=== PATIENT | male | born 1960 | race Caucasian/White ===

== ENCOUNTER 2018-04-25 07:34 | Emergency (ER) | payer SELFPAY ==
[2018-04-25] MEDS ORDERED: MEPERIDINE HCL 25 MG/0.5 ML ONE (08:19)
[2018-04-25] MEDS ORDERED: DEXAMETHASONE 10 MG/ML VIAL ONE (08:19)
[2018-04-25] MEDS ORDERED: KETOROLAC 30 MG/ML INJ ONE (08:19)
--- NOTE | 2018-04-25 09:28 | RAD REPORT ---
EXAM DESCRIPTION: RAD - Lumbar Spine 3 Views - 04/25/2018 9:14 am CLINICAL HISTORY: LOWER BACK PAIN Radiculopathy COMPARISON: No comparisons FINDINGS: Vertebral body heights appear maintained. No compression fracture noted. Minimal disc thin deon is present at at L4-5 and L5-S1. Minimal degenerative anterolisthesis of L4 on 5 is seen. No spo ndylolysis or spondylolisthesis. Heavy aortic atherosclerosis. IMPRESSION: Mild lower lumbar spondylosis.
--- NOTE | 2018-04-25 09:31 | ER ---
Nurse's Notes [facility] Name: Pierre Jade Age: 57 yrs Sex: Male : 1960 Arrival Date: 04/25/2018 Time: 07:37 Bed 19 Private MD: Reuben Tapia E Diagnosis: Strain of muscle, fascia and tendon of lower back Presentation: 04/25 07:46 Presenting complaint: Patient states: i loaded some plastic chairs last weekend on the hj back of my truck, then my whole lower back is hurting and my lower legs gave away; denies tingling numbness on bilateral legs;. Transition of care: patient was not received from another setting of care. Onset of symptoms was April 25, 2018. Risk Assessment: Do you want to hurt yourself or someone else? Patient reports no desire to harm self or others. Initial Sepsis Screen: Does the patient meet any 2 criteria? No. Patient's initial sepsis screen is negative. Does the patient have a suspected source of infection? No. Patient's initial sepsis screen is negative. Care prior to arrival: None. 07:46 Method Of Arrival: Ambulatory 07:46 Acuity: SARWAT 3 hj Triage Assessment: 07:50 General: Appears in no apparent distress. uncomfortable, Behavior is calm, cooperative, hj appropriate for age. Pain: Complains of pain in left low back and right low back. Musculoskeletal: Range of motion: intact in all extremities, Swelling. Historical: - Allergies: 07:49 NKDA; hj - Home Meds: 07:49 None [Active]; hj - PMHx: 07:49 Anxiety; Hypertension; hj - PSHx: 07:49 None; hj - Immunization history:: Adult Immunizations up to date. - Social history:: Smoking status: Patient uses tobacco products, smokes one pack cigarettes per day. Patient uses alcohol. - Ebola Screening: : Patient negative for fever greater than or equal to 101.5 degrees Fahrenheit, and additional compatible Ebola Virus Disease symptoms Patient denies exposure to infectious person Patient denies travel to an Ebola-affected area in the 21 days before illness onset. - Family history:: not pertinent. - Hospitalizations: : No recent hospitalization is reported. The patient was recently seen at [facility]. Screenin:50 Abuse screen: Denies threats or abuse. Denies injuries from another. Nutritional hj screening: No deficits noted. Tuberculosis screening: No symptoms or risk factors identified. Fall Risk None identified. Assessment: 07:55 Reassessment: pt is in the restroom at this time. tw2 08:03 General: Appears in no apparent distress. Behavior is calm, cooperative, appropriate tw2 for age. Pain: Complains of pain in right low back and left low back. Neuro: Level of Consciousness is awake, alert, obeys commands, Oriented to person, place, time, situation. Cardiovascular: Patient's skin is warm and dry. Respiratory: Airway is patent Respiratory effort is even, unlabored, Respiratory pattern is regular, symmetrical. GI: No signs and/or symptoms were reported involving the gastrointestinal system. : No signs and/or symptoms were reported regarding the genitourinary system. EENT: No signs and/or symptoms were reported regarding the EENT system. Derm: No signs and/or symptoms reported regarding the dermatologic system. Musculoskeletal: Circulation, motion, and sensation intact. Range of motion: intact in all extremities. 08:47 Reassessment: Patient appears in no apparent distress at this time. No changes from tw2 previously documented assessment. Patient and/or family updated on plan of care and expected duration. Pain level reassessed. Patient is alert, oriented x 3, equal unlabored respirations, skin warm/dry/pink. 09:45 Reassessment: Patient appears in no apparent distress at this time. Patient and/or tw2 family updated on plan of care and expected duration. Pain level reassessed. Patient is alert, oriented x 3, equal unlabored respirations, skin warm/dry/pink. Patient states feeling better. Patient states symptoms have improved. Vital Signs: 07:51 BP 140 / 85; Pulse 78; Resp 18; Temp 98.1(TE); Pulse Ox 97% on R/A; Weight 99.79 kg; hj Height 5 ft. 9 in. (175.26 cm); Pain 10/10; 08:46 BP 150 / 94; Pulse 79; Resp 17; Pulse Ox 95% on R/A; tw2 07:51 Body Mass Index 32.49 (99.79 kg, 175.26 cm) ED Course: 07:37 Patient arrived in ED. as 07:37 Reuben Tapia MD is Private Physician. as 07:44 Sp Lechuga MD is Attending Physician. rn 07:49 Triage completed. hj 07:50 Arm band placed on left wrist. hj 07:51 Patient has correct armband on for positive identification. Placed in gown. Bed in low hj position. Call light in reach. Side rails up X 1. 07:55 Corin Paredes, OTF is Primary Nurse. tw2 08:18 Inserted saline lock: 22 gauge in right antecubital area, using aseptic technique. tw2 09:13 X-ray completed. Patient tolerated procedure well. Patient moved back from radiology. mh1 09:14 XRAY Lumbar Spine (3 Views) In Process Unspecified. EDMS 09:31 Reuben Tapia MD is Referral Physician. rn 09:45 No provider procedures requiring assistance completed. IV discontinued, intact, tw2 bleeding controlled, No redness/swelling at site. Pressure dressing applied. Administered Medications: 08:19 Drug: Demerol 25 mg Route: IVP; Site: right antecubital; tw2 09:45 Follow up: Response: No adverse reaction tw2 08:22 Drug: TORadol 30 mg Route: IVP; Site: right antecubital; tw2 09:45 Follow up: Response: No adverse reaction tw2 08:24 Drug: Decadron - Dexamethasone 10 mg Route: IVP; Site: right antecubital; tw2 09:45 Follow up: Response: No adverse reaction tw2 Outcome: 09:31 Discharge ordered by . rn 09:45 Discharged to home via wheelchair, with family. tw2 09:45 Condition: stable 09:45 Discharge instructions given to patient, significant other, Instructed on discharge instructions, follow up and referral plans. no drinking with medication, no driving heavy equipment, medication usage, Demonstrated understanding of instructions, follow-up care, medications, Prescriptions given X 3. 09:46 Patient left the ED. tw2 Signatures: Dispatcher [employer] EDMS Mike Narayananha 1 Jeanette Nicole as Sp Lechuga MD MD rn Joaquin, Henry, RN RN hj Wise, Tara, RN RN tw2 Corrections: (The following items were deleted from the chart) 07:53 07:51 Pulse 78bpm; Resp 18bpm; Pulse Ox 97% RA; Temp 98.1F Temporal; 99.79 kg; Height 5 hj ft. 9 in.; BMI: 32.4; Pain 10/10; hj 08:09 07:46 Acuity: SARWAT 4 [facility]
--- NOTE | 2018-04-25 09:31 | EDPHYS ---
Physician Documentation [facility] Name: Pierre Jade Age: 57 yrs Sex: Male : 1960 Arrival Date: 04/25/2018 Time: 07:37 Bed 19 Private MD: Reuben Tapia E ED Physician Sp Lechuga HPI: 04/25 08:10 This 57 yrs old Male presents to ER via Ambulatory with complaints of Back rn Pain. 08:10 The patient presents with pain that is acute. The symptoms are located in the low back. rn Onset: The symptoms/episode began/occurred 2 day(s) ago. The pain does not radiate. Associated signs and symptoms: Pertinent positives: none Pertinent negatives: abdominal pain, dysuria, fever, hematuria, incontinence, nausea, numbness, tingling, urinary retention, weakness. Modifying factors: The patient symptoms are alleviated by nothing, the patient symptoms are aggravated by any movement, bending. Severity of symptoms: At their worst the symptoms were moderate, in the emergency department the symptoms have improved. The patient has not experienced similar symptoms in the past. Reports loading chairs into suv 2 days ago, felt immediate strain/pain of lower back, hurts to move and walk, but no weakness/numbness, no bowel/bladder issues. No previous back injury. . Historical: - Allergies: 07:49 NKDA; hj - Home Meds: 07:49 None [Active]; hj - PMHx: 07:49 Anxiety; Hypertension; hj - PSHx: 07:49 None; hj - Immunization history:: Adult Immunizations up to date. - Social history:: Smoking status: Patient uses tobacco products, smokes one pack cigarettes per day. Patient uses alcohol. - Ebola Screening: : Patient negative for fever greater than or equal to 101.5 degrees Fahrenheit, and additional compatible Ebola Virus Disease symptoms Patient denies exposure to infectious person Patient denies travel to an Ebola-affected area in the 21 days before illness onset. - Family history:: not pertinent. - Hospitalizations: : No recent hospitalization is reported. The patient was recently seen at [facility]. ROS: 08:10 Constitutional: Negative for fever, chills, and weight loss, Eyes: Negative for injury, rn pain, redness, and discharge, Neck: Negative for injury, pain, and swelling, Cardiovascular: Negative for chest pain, palpitations, and edema, Respiratory: Negative for shortness of breath, cough, wheezing, and pleuritic chest pain, Abdomen/GI: Negative for abdominal pain, nausea, vomiting, diarrhea, and constipation, Back: + for injury and pain, MS/Extremity: Negative for injury and deformity, Skin: Negative for injury, rash, and discoloration, Neuro: Negative for headache, weakness, numbness, tingling, and seizure. Exam: 08:10 Constitutional: This is a well developed, well nourished patient who is awake, alert, rn and in no acute distress. Back: No spinal tenderness. + slow to get up and lift legs into stretcher Skin: Warm, dry MS/ Extremity: Pulses equal, no cyanosis. Neurovascular intact. Full, normal range of motion. Equal circumference. Neuro: Awake and alert, GCS 15, oriented to person, place, time, and situation. Cranial nerves II-XII grossly intact. Motor strength 5/5 in all extremities. Sensory grossly intact. Cerebellar exam normal. Normal gait. Vital Signs: 07:51 BP 140 / 85; Pulse 78; Resp 18; Temp 98.1(TE); Pulse Ox 97% on R/A; Weight 99.79 kg; hj Height 5 ft. 9 in. (175.26 cm); Pain 10/10; 08:46 BP 150 / 94; Pulse 79; Resp 17; Pulse Ox 95% on R/A; tw2 07:51 Body Mass Index 32.49 (99.79 kg, 175.26 cm) hj MDM: 07:54 Patient medically screened. rn 09:30 Differential diagnosis: arthritis, Osteoarthritis ruptured disc, sprain, strain. Data rn reviewed: vital signs, nurses notes, radiologic studies, plain films, and as a result, I will discharge patient. Counseling: I had a detailed discussion with the patient and/or guardian regarding: the historical points, exam findings, and any diagnostic results supporting the discharge/admit diagnosis, radiology results, the need for outpatient follow up, to return to the emergency department if symptoms worsen or persist or if there are any questions or concerns that arise at home. Response to treatment: the patient's symptoms have mildly improved after treatment, and as a result, I will discharge patient. Special discussion: I discussed with the patient/guardian in detail that at this point there is no indication for admission to the hospital. It is understood, however, that if the symptoms persist or worsen the patient needs to return immediately for re-evaluation. Further emergent ED testing is not indicated at this point in time. I discussed with the patient/guardian in detail the need to arrange with the PCP or specialist further outpatient testing, MRI, Based on the presenting symptoms and work-up in the emergency department, I discussed in detail the need to arrange with the PCP or specialist an outpatient procedure, Based on the history and exam findings, there is no indication for further emergent testing or inpatient evaluation. I discussed with the patient/guardian the need to see the primary care provider for further evaluation of the symptoms. 04/25 08:08 Order name: XRAY Lumbar Spine (3 Views); Complete Time: :30 rn 04/25 08:08 Order name: IV Start; Complete Time: : rn Administered Medications: 08:19 Drug: Demerol 25 mg Route: IVP; Site: right antecubital; tw2 09:45 Follow up: Response: No adverse reaction tw2 08:22 Drug: TORadol 30 mg Route: IVP; Site: right antecubital; tw2 09:45 Follow up: Response: No adverse reaction tw2 08:24 Drug: Decadron - Dexamethasone 10 mg Route: IVP; Site: right antecubital; tw2 09:45 Follow up: Response: No adverse reaction tw2 Disposition: 04/25/18 09:31 Discharged to Home. Impression: Strain of muscle, fascia and tendon of lower back. - Condition is Stable. - Discharge Instructions: Back Pain, Adult, Back Injury Prevention. - Prescriptions for Tylenol- Codeine #3 300-30 mg Oral Tablet - take 1 tablet by ORAL route every 6 hours As needed; 20 tablet. Cyclobenzaprine 10 mg Oral Tablet - take 1 tablet by ORAL route every 8 hours As needed; 20 tablet. Medrol (Davis) 4 mg Oral Tablets, Dose Pack - take 1 tablet by ORAL route as directed - follow package instructions; 1 packet. - Medication Reconciliation Form, Thank You Letter, Antibiotic Education, Prescription Opioid Use, Work release form form. - Follow up: Reuben Tapia MD; When: As needed; Reason: Recheck today's complaints, Re-evaluation by your physician. - Problem is new. - Symptoms have improved. Signatures: Dispatcher [employer] EDSp Márquez MD MD rn Joaquin, Henry, RN RN hj Wise, Tara, RN RN tw2 Corrections: (The following items were deleted from the chart) 09:46 09:31 04/25/2018 09:31 Discharged to Home. Impression: Strain of muscle, fascia and tw2 tendon of lower back. Condition is Stable. Discharge Instructions: Back Pain, Adult, Back Injury Prevention. Prescriptions for Tylenol-Codeine #3 300-30 mg Oral Tablet - take 1 tablet by ORAL route every 6 hours As needed; 20 tablet, Cyclobenzaprine 10 mg Oral Tablet - take 1 tablet by ORAL route every 8 hours As needed; 20 tablet, Medrol (Davis) 4 mg Oral Tablets, Dose Pack - take 1 tablet by ORAL route as directed - follow package instructions; 1 packet. and Forms are Work release form, Medication Reconciliation Form, Thank You Letter, Antibiotic Education, Prescription Opioid Use. Follow up: Reuben Tapia; When: As needed; Reason: Recheck today's complaints, Re-evaluation by your physician. Problem is new. Symptoms have improved. rn
[2018-04-25 10:04] VITALS: TEMP 98.1
[2018-04-25 10:06] VITALS: BP 150/94; O2SAT 95
== END 2018-04-25 09:46 | disposition home or self-care (01) ==
LOC: ER 07:34
DX: S39.012A Strain of muscle, fascia and tendon of lower back, initial encounter (principal); X50.9XXA Other and unspecified overexertion or strenuous movements or postures, initial encounter; Y93.89 Activity, other specified; Y92.9 Unspecified place or not applicable; I10 Essential (primary) hypertension; F17.210 Nicotine dependence, cigarettes, uncomplicated
CPT/HCPCS: 72100; 96374; 96375; 99284; J1100; J2175

== ENCOUNTER 2018-09-28 17:51 | Emergency (ER) | payer SELFPAY ==
[2018-09-28] MEDS ORDERED: ALBUTEROL 2.5 MG/3 ML NEB SOL ONE (18:15)
[2018-09-28] MEDS ORDERED: LORAZEPAM 1 MG TABLET ONE (18:15)
[2018-09-28] MEDS ORDERED: IPRATROPIUM BROM 0.5MG/2.5ML ONE (18:15)
--- NOTE | 2018-09-28 19:02 | EDPHYS ---
Physician Documentation [facility] Name: Pierre Jade Age: 58 yrs Sex: Male : 1960 Arrival Date: 09/28/2018 Time: 17:55 Bed 6 Private MD: ED Physician Sp Lechuga HPI: 09/28 18:12 This 58 yrs old Male presents to ER via EMS with complaints of Anxiety. kb 18:12 The patient presents to the emergency department with anxiety, over a relationship, has kb had a recent break-up. Onset: The symptoms/episode began/occurred today. Past psychiatric history: Past psychiatric history: Prior diagnosis: anxiety, was on unknown medication for anxiety, but hasn't needed it in a long time. Associated signs and symptoms: Pertinent positives; anxiety. Severity of symptoms: At their worst the symptoms were moderate in the emergency department the symptoms are unchanged. The patient has experienced similar episodes in the past. The patient has not recently seen a physician. Pt reports his went to her daughter's house in [place], then called and said she wasn't coming back and was leaving him. States he has not been able to sit still since then. Long time smoker, no complaints of shortness of breath or chest pain. c/o anxiety only. Historical: - Allergies: 17:59 NKDA; sg - Home Meds: 17:59 lisinopril Oral [Active]; sg - PMHx: 17:59 Anxiety; Hypertension; sg - PSHx: 17:59 None; sg - Immunization history:: Adult Immunizations unknown. - Social history:: Smoking status: Patient/guardian denies using tobacco. - Ebola Screening: : Patient negative for fever greater than or equal to 101.5 degrees Fahrenheit, and additional compatible Ebola Virus Disease symptoms Patient denies exposure to infectious person Patient denies travel to an Ebola-affected area in the 21 days before illness onset No symptoms or risks identified at this time. ROS: 18:04 Constitutional: Negative for fever, chills, and weight loss, Cardiovascular: Negative kb for chest pain, palpitations, and edema, Respiratory: Negative for shortness of breath, cough, wheezing, and pleuritic chest pain, Abdomen/GI: Negative for abdominal pain, nausea, vomiting, diarrhea, and constipation, Back: Negative for injury and pain, MS/Extremity: Negative for injury and deformity, Skin: Negative for injury, rash, and discoloration, Neuro: Negative for headache, weakness, numbness, tingling, and seizure. 18:04 Psych: Positive for anxiety, Negative for depression, drug dependence, alcohol dependence, auditory hallucinations, visual hallucinations, homicidal ideation, insomnia, suicide gesture, suicidal ideation. Exam: 18:04 Constitutional: This is a well developed, well nourished patient who is awake, alert, kb and in no acute distress. Head/Face: Normocephalic, atraumatic. ENT: Nares patent. No nasal discharge, no septal abnormalities noted. Tympanic membranes are normal and external auditory canals are clear. Oropharynx with no redness, swelling, or masses, exudates, or evidence of obstruction, uvula midline. Mucous membranes moist. Neck: Trachea midline, no thyromegaly or masses palpated, and no cervical lymphadenopathy. Supple, full range of motion without nuchal rigidity, or vertebral point tenderness. No Meningismus. Chest/axilla: Normal chest wall appearance and motion. Nontender with no deformity. No lesions are appreciated. Cardiovascular: Regular rate and rhythm with a normal S1 and S2. No gallops, murmurs, or rubs. Normal PMI, no JVD. No pulse deficits. Abdomen/GI: Soft, non-tender, with normal bowel sounds. No distension or tympany. No guarding or rebound. No evidence of tenderness throughout. Skin: Warm, dry with normal turgor. Normal color with no rashes, no lesions, and no evidence of cellulitis. MS/ Extremity: Pulses equal, no cyanosis. Neurovascular intact. Full, normal range of motion. Neuro: Awake and alert, GCS 15, oriented to person, place, time, and situation. Cranial nerves II-XII grossly intact. Motor strength 5/5 in all extremities. Sensory grossly intact. Cerebellar exam normal. Normal gait. 18:04 Respiratory: the patient does not display signs of respiratory distress, Respirations: normal, Breath sounds: wheezing: expiratory that is mild, is heard diffusely. 18:04 Psych: Behavior/mood is cooperative, anxious, Affect is animated, Oriented to person, place, time, Patient has no thoughts/intents to harm self or others. Judgement / Insight is normal. Memory is normal. Delusions/hallucinations are not present. 18:37 ECG was reviewed by the Attending Physician. kb Vital Signs: 17:57 Pulse 89; Resp 19; Temp 97.2; Pulse Ox 99% on R/A; sg 19:06 BP 133 / 92; Pulse 78; Resp 17 S; Temp 98.1; Pulse Ox 98% on R/A; Pain 0/10; sg 19:21 BP 133 / 92; Pulse 100; Resp 20; Pulse Ox 96% on R/A; tl2 17:57 unable to obtain a BP at this time, due to pt anxiety sg MDM: 17:56 Patient medically screened. kb 17:59 Data reviewed: vital signs, nurses notes. Data interpreted: Pulse oximetry: on room air kb is 99 %. Interpretation: normal. 18:55 Counseling: I had a detailed discussion with the patient and/or guardian regarding: the kb historical points, exam findings, and any diagnostic results supporting the discharge/admit diagnosis, the need for outpatient follow up, a family practitioner, to return to the emergency department if symptoms worsen or persist or if there are any questions or concerns that arise at home. 09/28 17:58 Order name: EKG; Complete Time: 17:59 kb 09/28 17:58 Order name: EKG - Nurse/Tech; Complete Time: 18:13 kb EC:37 Rate is 95 beats/min. Rhythm is regular, Normal Sinus Rhythm. QRS Peck is Normal. MA kb interval is normal at 160 msec. QRS interval is normal at 84 msec. QT interval is normal at 378 msec. Clinical impression: Normal ECG. Interpreted by me. Reviewed by me. Administered Medications: 18:10 Drug: DuoNeb (3:1) (2.5 mg - 0.5 mg) 3 ml Route: Nebulizer; sg 19:22 Follow up: Response: Marked relief of symptoms tl2 18:10 Drug: Ativan 1 mg Route: PO; sg 19:22 Follow up: Response: No adverse reaction; Marked relief of symptoms tl2 Disposition: 09/28/18 19:02 Discharged to Home. Impression: Anxiety disorder, unspecified. - Condition is Stable. - Discharge Instructions: Panic Attacks, [id number]. - Medication Reconciliation Form, Thank You Letter, Antibiotic Education, Prescription Opioid Use form. - Follow up: Emergency Department; When: As needed; Reason: Worsening of condition. Follow up: Private Physician; When: 2 - 3 days; Reason: Recheck today's complaints, Continuance of care, Re-evaluation by your physician. Addendum: 10/03/2018 07:56 Co-signature as Attending Physician, Sp Lechuga MD. r n Signatures: Paty Christopher, ZACHARY-C [employer] P[employer]ER-CkJaun Sabillon RN OTF sg Sp Lechuga MD MD rn Knox, Tala RN RN tl2 Corrections: (The following items were deleted from the chart) 09/28 19:23 19:02 09/28/2018 19:02 Discharged to Home. Impression: Anxiety disorder, unspecified. tl2 Condition is Stable. Discharge Instructions: Panic Attacks, [id number]. Forms are Medication Reconciliation Form, Thank You Letter, Antibiotic Education, Prescription Opioid Use. Follow up: Emergency Department; When: As needed; Reason: Worsening of condition. Follow up: Private Physician; When: 2 - 3 days; Reason: Recheck today's complaints, Continuance of care, Re-evaluation by your physician. kb
--- NOTE | 2018-09-28 19:02 | ER ---
Nurse's Notes [facility] Name: Pierre Jade Age: 58 yrs Sex: Male : 1960 Arrival Date: 09/28/2018 Time: 17:55 Bed 6 Private MD: Diagnosis: Anxiety disorder, unspecified Presentation: 09/28 17:55 Presenting complaint: EMS states: pt reports that his left to go see their sg daughter, then told him that she was not coming back home to him. shortly after hearing that he began feeling anxious. reports history of anxiety and having hypertension. Transition of care: patient was not received from another setting of care. Onset of symptoms was September 28, 2018. Risk Assessment: Do you want to hurt yourself or someone else? Patient reports no desire to harm self or others. Initial Sepsis Screen: Does the patient meet any 2 criteria? No. Patient's initial sepsis screen is negative. Does the patient have a suspected source of infection? No. Patient's initial sepsis screen is negative. Care prior to arrival: None. 17:55 Method Of Arrival: EMS: [facility] 17:55 Acuity: SARWAT 4 sg Historical: - Allergies: 17:59 NKDA; sg - Home Meds: 17:59 lisinopril Oral [Active]; sg - PMHx: 17:59 Anxiety; Hypertension; sg - PSHx: 17:59 None; sg - Immunization history:: Adult Immunizations unknown. - Social history:: Smoking status: Patient/guardian denies using tobacco. - Ebola Screening: : Patient negative for fever greater than or equal to 101.5 degrees Fahrenheit, and additional compatible Ebola Virus Disease symptoms Patient denies exposure to infectious person Patient denies travel to an Ebola-affected area in the 21 days before illness onset No symptoms or risks identified at this time. Screenin:12 Abuse screen: Denies threats or abuse. Nutritional screening: No deficits noted. tw2 Tuberculosis screening: No symptoms or risk factors identified. Fall Risk None identified. Assessment: 18:14 General: Appears in no apparent distress. comfortable, well developed, well nourished, sg Behavior is agitated, anxious, Smells of alcohol. Neuro: Level of Consciousness is awake, alert, obeys commands, Oriented to person, place, time, situation, It Sales Executive are equal bilaterally Moves all extremities. Full function Speech is normal, Facial symmetry appears normal. Cardiovascular: Patient's skin is warm and dry. Chest pain is denied. Respiratory: Airway is patent Respiratory effort is even, unlabored, Respiratory pattern is regular, symmetrical. GI: Abdomen is round obese, Reports tolerance of fluids, tolerance of food. : No signs and/or symptoms were reported regarding the genitourinary system. EENT: No signs and/or symptoms were reported regarding the EENT system. Derm: Skin is normal. Musculoskeletal: No signs and/or symptoms reported regarding the musculoskeletal system. 19:05 Reassessment: Patient appears in no apparent distress at this time. Patient and/or sg family updated on plan of care and expected duration. Pain level reassessed. Patient is alert, oriented x 3, equal unlabored respirations, skin warm/dry/pink. Patient states feeling better. Patient states symptoms have improved. General: Behavior is calm, cooperative, appropriate for age, quiet. Respiratory: Airway is patent Respiratory effort is even, unlabored, Respiratory pattern is regular, symmetrical. 19:21 Reassessment: Patient appears in no apparent distress at this time. Patient and/or tl2 family updated on plan of care and expected duration. Pain level reassessed. Patient is alert, oriented x 3, equal unlabored respirations, skin warm/dry/pink. pt verbalized understanding of discharge instructions, need for follow up Patient states feeling better. Vital Signs: 17:57 Pulse 89; Resp 19; Temp 97.2; Pulse Ox 99% on R/A; sg 19:06 BP 133 / 92; Pulse 78; Resp 17 S; Temp 98.1; Pulse Ox 98% on R/A; Pain 0/10; sg 19:21 BP 133 / 92; Pulse 100; Resp 20; Pulse Ox 96% on R/A; tl2 17:57 unable to obtain a BP at this time, due to pt anxiety sg ED Course: 17:55 Patient arrived in ED. sg 17:55 [facility] kb 17:55 Sp Lechuga MD is Attending Physician. kb 17:55 Bed in low position. Call light in reach. Pulse ox on. tw2 17:57 Triage completed. sg 17:59 Arm band placed on. sg 18:13 Jaun Wisdom, OTF is Primary Nurse. sg 18:14 EKG done, by ED staff, reviewed by Paty MONTANO. sg 19:21 No provider procedures requiring assistance completed. Patient did not have IV access tl2 during this emergency room visit. Administered Medications: 18:10 Drug: DuoNeb (3:1) (2.5 mg - 0.5 mg) 3 ml Route: Nebulizer; sg 19:22 Follow up: Response: Marked relief of symptoms tl2 18:10 Drug: Ativan 1 mg Route: PO; sg 19:22 Follow up: Response: No adverse reaction; Marked relief of symptoms tl2 Outcome: 19:02 Discharge ordered by . yash 19:21 Discharged to home ambulatory. tl2 19:21 Condition: stable 19:21 Discharge instructions given to patient, Instructed on discharge instructions, follow up and referral plans. Demonstrated understanding of instructions, follow-up care. 19:23 Patient left the ED. tl2 Signatures: Paty Christopher, CHARMAINE SHARMA-Jaun Cunningham RN RN Corin Paredes RN RN [facility] Tala Ramírez RN RN tl2
[2018-09-29 02:52] VITALS: BP 133/92; TEMP 98.1
[2018-09-29 02:54] VITALS: O2SAT 96
--- NOTE | 2018-09-29 12:47 | EKG ---
Test Date: 2018-09-28 Test Time: 18:08:38 Paddle Dyeing Machine Operator: SWG MEASUREMENT RESULTS: Intervals: Rate: 95 ID: [id number] QRSD: 84 QT: 378 QTc: 475 [place]: P: 57 ID: [id number] QRS: 48 T: -8 INTERPRETIVE STATEMENTS: Normal sinus rhythm Normal ECG Compared to ECG 12/16/2016 07:54:20 Ventricular premature complex(es) no longer present Prolonged QT interval no longer present Electronically Signed On 09-29-18 12:44:28 CDT by Valentino Yip
== END 2018-09-28 19:23 | disposition home or self-care (01) ==
LOC: ER 17:51
DX: F41.9 Anxiety disorder, unspecified (principal); I10 Essential (primary) hypertension
CPT/HCPCS: 93005; 94640; 99284

== ENCOUNTER 2020-09-20 01:47 | Emergency (ER) | payer SELFPAY ==
[2020-09-20] MEDS ORDERED: SUCCINYLCHOLINE 20 MG/ML (10 ML) IV ONE (01:48)
[2020-09-20] MEDS ORDERED: EPINEPHrine 1 MG/10 ML SYR IV ONE (01:48)
[2020-09-20] MEDS ORDERED: Caclcium Chloride 10% INJ SYR IV ONE (01:48)
[2020-09-20] MEDS ORDERED: NA CHLORIDE 0.9% 1,000 ML IV ONE ×2 (01:48)
[2020-09-20] MEDS ORDERED: ETOMIDATE 20 MG/10 ML VIAL IV ONE (01:48)
[2020-09-20] MEDS ORDERED: LIDOCAINE 100 MG/5 ML SYRINGE IV ONE (01:48)
--- OUTSIDE RECORDS SUMMARY | 2020-09-20 01:50 | XMS REPORT | Continuity of Care Document ---
:1960 Author Organization [facility] t Address [address] [place] [address] Care Team Providers Name Role Phone Marleen Amaya DO Attending Clinician Problems This patient has no known problems. Allergies, Adverse Reactions, Alerts This patient has no known allergies or adverse reactions. Medications This patient has no known medications. Procedures This patient has no known procedures. Encounters Start End Encounter Admission Attending Care Care Encounter Source Date/Time Date/Time Type Type Clinicians Facility Department ID 2020-08-07 2020-08-07 Emergency ILIANA Amaya [id number] 08:17:00 09:23:00 Scarlet Cardoso [id number] [place] [id number] [place] [id number] Results This patient has no known results.
[2020-09-20] MEDS ORDERED: ONDANSETRON 4 MG/2 ML VIAL ONE ×2 (02:12→06:53)
[2020-09-20] MEDS ORDERED: PANTOPRAZOLE 40 MG INJ ONE ×2 (02:15→02:24)
[2020-09-20] MEDS ORDERED: OCTREOTIDE ACETATE 100 MCG/ML ONE (02:16)
[2020-09-20 02:20] LABS: Urine Blood Trace-intact (Negative); Urine Glucose Negative (Negative); Urine Protein 2+ (Negative); Urine Specific Gravity >=1.030 (1.005-1.030); Urine pH 5.5 (5.0-7.0)
[2020-09-20] MEDS ORDERED: NA CHLORIDE 0.9% 1,000 ML ONE ×2 (02:25→07:41)
[2020-09-20] MEDS ORDERED: NA CHLORIDE 0.9% 250 ML ONE (02:25)
[2020-09-20] MEDS ORDERED: NA CHLORIDE 0.9% 500 ML ONE (02:27)
[2020-09-20 02:29] LABS: Protime INR 1.65
[2020-09-20 02:30] LABS: Absolute Lymphocytes (CBC) 2.8 K/uL (0.7-4.9); Basophils % 0.8 % (0-1.3); Hematocrit 29.2 % (39.6-49.0); Lymphocytes % 19.4 % (15.3-44.8); MPV 9.7 fL (7.6-11.3)
[2020-09-20] MEDS ORDERED: OCTREOTIDE ACETATE 500 MCG/ML ONE (02:35)
[2020-09-20 02:49] LABS: Albumin 2.6 g/dL (3.4-5.0); Bilirubin Direct 1.3 mg/dL (0-0.2); Bilirubin Total 2.9 mg/dL (0.2-1.0); Magnesium 1.5 mg/dL (1.8-2.4); Potassium 4.1 mmol/L (3.5-5.1); Protein, Total 7.3 g/dL (6.4-8.2); Troponin (Emerg Dept Use Only) 0.16 ng/mL (0.0-0.045)
[2020-09-20] MEDS ORDERED: NOREPINEPHRINE 4mg/D5W 250mL 4 MG/250 ML BAG IV ONE (02:53)
[2020-09-20 03:17] LABS: Blood Morphology Comment NOTED (NOT SEEN); Macrocytosis 1+; Platelet Estimate ADEQ; White Blood Cell Scan OK (OK)
[2020-09-20] MEDS ORDERED: NOREPINEPHRINE 4 MG/4 ML VIAL ONE (06:28)
[2020-09-20] MEDS ORDERED: D5W 250 ML IV ONE (06:28)
[2020-09-20 06:51] LABS: Hematocrit 28.8 % (39.6-49.0)
[2020-09-20] MEDS ORDERED: RSI MEDICATION KIT IV ONE (06:58)
[2020-09-20] MEDS ORDERED: LORazepam 2 MG/ML VIAL ONE (06:58)
[2020-09-20] MEDS ORDERED: propofoL 1,000 MG/100 ML VIAL IV ONE (07:07)
--- NOTE | 2020-09-20 07:48 | EKG ---
Test Date: 2020-09-20 Test Time: 02:39:17 Machine Stitcher: MEASUREMENT RESULTS: Intervals: Rate: 132 KS: 140 QRSD: 82 QT: 298 QTc: 441 [place]: P: 70 KS: 140 QRS: 56 T: 57 INTERPRETIVE STATEMENTS: Sinus tachycardia Otherwise normal ECG Compared to ECG 09/28/2018 18:08:38 Sinus rhythm no longer present Electronically Signed On 09-20-20 07:48:11 CDT by Valentino Yip
--- NOTE | 2020-09-20 07:51 | EDPHYS ---
Physician Documentation [facility] Name: Pierre Jade Age: 60 yrs Sex: Male : 1960 Arrival Date: 09/20/2020 Time: 01:49 Bed 2 Private MD: SARAH Physician Win Garcia HPI: 09/20 02:27 This 60 yrs old Male presents to ER via EMS with complaints of GI Bleeding. mh7 02:27 The patient presents to the emergency department vomiting blood, a moderate amount, mh7 bright red, with multiple such episodes, with rectal bleeding, a moderate amount, bright red blood with bowel movement, with multiple such episodes. Onset: The symptoms/episode began/occurred today. Abdominal pain: none is appreciated. Modifying factors: The symptoms are alleviated by nothing, the symptoms are aggravated by nothing. Associated signs and symptoms: Pertinent positives: vomiting, Upper back pain, Pertinent negatives: anorexia, chest pain, constipation, diarrhea, dizziness at rest, dizziness when standing, fever, shortness of breath, syncope, near-syncope. Severity of symptoms: At their worst the symptoms were severe today, in the emergency department the symptoms have improved moderately. Historical: - Allergies: 01:52 NKDA; jb4 - Home Meds: 01:52 Hydroxyzine Oral [Active]; jb4 - PMHx: 01:52 Anxiety; Hypertension; jb4 - PSHx: 01:52 None; jb4 - Immunization history:: Adult Immunizations up to date. - Social history:: Smoking status: Patient reports the use of cigarette tobacco products, smokes one pack cigarettes per day. Patient uses alcohol, on a daily basis. Patient/guardian denies using street drugs. ROS: 02:27 Constitutional: Negative for fever, chills, and weight loss, Eyes: Negative for injury, mh7 pain, redness, and discharge, ENT: Negative for injury, pain, and discharge, Neck: Negative for injury, pain, and swelling, Cardiovascular: Negative for chest pain, palpitations, and edema, Respiratory: Negative for shortness of breath, cough, wheezing, and pleuritic chest pain, : Negative for injury, bleeding, discharge, and swelling, MS/Extremity: Negative for injury and deformity, Skin: Negative for injury, rash, and discoloration, Neuro: Negative for headache, weakness, numbness, tingling, and seizure, Psych: Negative for depression, anxiety, suicide ideation, homicidal ideation, and hallucinations, Allergy/Immunology: Negative for hives, rash, and allergies, Endocrine: Negative for neck swelling, polydipsia, polyuria, polyphagia, and marked weight changes, Hematologic/Lymphatic: Negative for swollen nodes, abnormal bleeding, and unusual bruising. Exam: 02:27 Head/Face: Normocephalic, atraumatic. mh7 02:27 ENT: Nares patent. No nasal discharge, no septal abnormalities noted. Tympanic membranes are normal and external auditory canals are clear. Oropharynx with no redness, swelling, or masses, exudates, or evidence of obstruction, uvula midline. Mucous membranes moist. Neck: Trachea midline, no thyromegaly or masses palpated, and no cervical lymphadenopathy. Supple, full range of motion without nuchal rigidity, or vertebral point tenderness. No Meningismus. Chest/axilla: Normal chest wall appearance and motion. Nontender with no deformity. No lesions are appreciated. 02:27 Respiratory: Lungs have equal breath sounds bilaterally, clear to auscultation and percussion. No rales, rhonchi or wheezes noted. No increased work of breathing, no retractions or nasal flaring. Abdomen/GI: Soft, non-tender, with normal bowel sounds. No distension or tympany. No guarding or rebound. No evidence of tenderness throughout. Back: No spinal tenderness. No costovertebral tenderness. Full range of motion. 02:27 MS/ Extremity: Pulses equal, no cyanosis. Neurovascular intact. Full, normal range of motion. Neuro: Awake and alert, GCS 15, oriented to person, place, time, and situation. Cranial nerves II-XII grossly intact. Motor strength 5/5 in all extremities. Sensory grossly intact. Cerebellar exam normal. Normal gait. Psych: Awake, alert, with orientation to person, place and time. Behavior, mood, and affect are within normal limits. 02:27 Constitutional: The patient appears alert, awake, obviously ill. 02:27 Eyes: Periorbital structures: appear normal, Pupils: equal, round, and reactive to light and accomodation, Extraocular movements: intact throughout, Conjunctiva: pale, bilaterally, Sclera: no appreciated abnormality. 02:27 Cardiovascular: Rate: tachycardic, Rhythm: regular, Pulses: no pulse deficits are appreciated, Heart sounds: normal, normal S1and S2, Edema: is not appreciated, JVD: is not appreciated. 02:27 Skin: pale. Vital Signs: 01:49 BP 59 / 44; Pulse 129; Resp 26; Temp 98.2; Pulse Ox 100% on R/A; jb4 02:00 BP 63 / 46; Pulse 123; Resp 16; Pulse Ox 98% on R/A; jm8 02:30 BP 78 / 42; Pulse 133; Resp 24; Pulse Ox 100% on R/A; jm8 03:00 BP 78 / 38; Pulse 122; Resp 25; Pulse Ox 100% on R/A; jm8 03:10 BP 44 / 34; Pulse 125; Resp 24; Pulse Ox 100% ; jm8 03:20 BP 88 / 57; Pulse 127; Resp 16; Pulse Ox 97% on R/A; jm8 03:35 BP 102 / 57; Pulse 122; Resp 24; Pulse Ox 99% ; jm8 04:06 BP 101 / 58; Pulse 125; Resp 24; Pulse Ox 100% on R/A; jm8 04:30 BP 75 / 66; Pulse 120; Resp 16; Pulse Ox 100% on R/A; jm8 05:00 BP 94 / 59; Pulse 131; Resp 20; Pulse Ox 98% on R/A; jm8 05:30 BP 97 / 46; Pulse 125; Resp 24; Pulse Ox 97% on R/A; jm8 06:00 BP 106 / 59; Pulse 132; Resp 20; Pulse Ox 96% on R/A; jm8 Procedures: 02:34 Central Line: the site was prepped with Betadine, in sterile fashion, a triple lumen mh7 catheter was inserted, in the right femoral vein, in 1 attempts. placement was verified, by blood return, the site was dressed with using sterile technique, the patient tolerated the procedure, well. 06:52 Intubation: Ventilated with 100% NRB prior to procedure. O2 saturation prior to mh7 procedure was 95 %. Intubated orally using # 3 Mark blade with 7.5 mm ETT. was successful on first attempt. Ventilated with Ambu bag. ventilator. Cricoid pressure applied during procedure. Tube secured with ETT brambila at right side of mouth measured 22 cm at lip. Placement verified by CO2 detector with (+) color change, auscultating bilateral breath sounds, O2 saturation after procedure was 100 %. Patient tolerated well. MDM: 07:02 Differential diagnosis: gastritis, hemorrhagic shock, varices. Data reviewed: vital [facility] signs, nurses notes, EMS record, old medical records, lab test result(s), cardiac enzymes, CBC, electrolytes, EKG, radiologic studies, plain films. Data interpreted: Pulse oximetry: on ventilator is 100 %. Interpretation: acceptable. Transition of care: After a detail discussion of the patient's case, care is transferred to Win Garcia MD. ED course: Attempts to transfer unsuccessful as no hospital system in [facility] has ICU beds available. Also called hospitals in [facility].. 07:25 Patient medically screened. [facility] 09/20 01:55 Order name: Basic Metabolic Panel [facility] 09/20 01:55 Order name: CBC with Diff [facility] 09/20 01:55 Order name: LFT's; Complete Time: 02:54 [facility] 09/20 01:55 Order name: Magnesium; Complete Time: 02:54 [facility] 09/20 01:55 Order name: NT PRO-BNP; Complete Time: 02:54 [facility] 09/20 01:55 Order name: PT-INR; Complete Time: 02:54 [facility] 09/20 01:55 Order name: Troponin (emerg Dept Use Only); Complete Time: 02:54 [facility] 09/20 01:55 Order name: Type And Screen [facility] 09/20 01:55 Order name: Basic Metabolic Panel; Complete Time: 02:54 [facility] 09/20 01:55 Order name: CBC with Automated Diff; Complete Time: 03:57 [facility] 09/20 01:57 Order name: ETOH Level; Complete Time: 03:57 [facility] 09/20 02:20 Order name: Urine Dipstick-Ancillary; Complete Time: 02:23 [facility] 09/20 02:53 Order name: Packed RBC Leukored [facility] 09/20 01:55 Order name: XRAY Chest (1 view) [facility] 09/20 02:55 Order name: Blood Culture Adult (2) [facility] 09/20 03:17 Order name: CBC Smear Scan; Complete Time: 03:57 [facility] 09/20 03:30 Order name: COVID-19 : Document "Date of Symptom Onset" if Symptomatic. tt3 09/20 03:58 Order name: Lipase [facility] 09/20 03:58 Order name: Lipase; Complete Time: 06:49 EDMS 09/20 05:39 Order name: SARS-COV-2 RT PCR; Complete Time: 06:49 EDNJ 09/20 06:11 Order name: Hemoglobin; Complete Time: 06:57 iw 09/20 06:11 Order name: Hematocrit; Complete Time: 06:57 iw 09/20 06:49 Order name: Chest Single View XRAY [facility] 09/20 07:02 Order name: Bb Add On eb 09/20 07:03 Order name: Packed RBCs (Additional Unit) [facility] 09/20 01:55 Order name: EKG; Complete Time: 01:56 [facility] 09/20 01:55 Order name: Cardiac monitoring; Complete Time: 03:46 [facility] 09/20 01:55 Order name: EKG - Nurse/Tech; Complete Time: 04:28 [facility] 09/20 01:55 Order name: IV Saline Lock; Complete Time: 04:28 [facility] 09/20 01:55 Order name: Labs collected and sent; Complete Time: 04:28 [facility] 09/20 01:55 Order name: O2 Per Protocol; Complete Time: 04:28 [facility] 09/20 01:55 Order name: O2 Sat Monitoring; Complete Time: 04:28 [facility] 09/20 01:57 Order name: Urine Dipstick-Ancillary (obtain specimen) [facility] Administered Medications: 01:58 Drug: ProTONIX (pantoprazole) 80 mg Route: IVP; Site: right antecubital; jm8 02:49 Follow up: Response: No adverse reaction 8 01:58 Drug: Octreotide 50 mcg Route: IV; Rate: bolus; Site: right antecubital; jm8 02:03 Drug: Zofran (Ondansetron) 4 mg Route: IVP; Site: right antecubital; jm8 02:49 Follow up: Response: No adverse reaction; Nausea is decreased jm8 02:08 Drug: NS 0.9% 1000 ml Route: IV; Rate: 1000 ml; Site: right antecubital; 4 02:24 Drug: Octreotide Infusion (50 mcg/hr) - (Octreotide 500 mcg, NS 0.9% 500 ml) Route: IV; 8 Rate: 50 ml/hr; Site: right femoral; 02:25 Drug: ProTONIX (pantoprazole) 8 mg/hr Route: IV; Rate: 25 ml/hr; Site: right femoral; jm8 02:47 Drug: Levophed (norepinephrine) (4 mg/250 mL D5W 4 mcg/min Route: IV; Rate: calculated jm8 rate; Site: right femoral; 02:48 Follow up: Rate change 5 mcg/min jm8 02:53 Follow up: Rate change 15 mcg/min jm8 03:00 Follow up: Rate change 25 mcg/min jm8 03:10 Follow up: Rate change 30 mcg/min jm8 03:51 Follow up: Rate change 10 mcg/min jm8 04:29 Follow up: Rate change 20 mcg/min jm8 06:40 Drug: Zofran (Ondansetron) 4 mg Route: IVP; Site: right antecubital; jm8 06:45 Drug: Etomidate 20 mg Route: IVP; Site: right femoral; iw 06:45 Drug: Succinylcholine 100 mg Route: IVP; Site: right femoral; iw 06:45 Drug: Ativan (LORazepam) 1 mg Route: IVP; Site: right antecubital; jm8 07:07 Drug: EPINEPHrine 0.1mg/mL 1:10,000 1 mg Route: IVP; Site: right femoral; ss 08:07 Follow up: Response: No change in condition ss 07:25 Drug: EPINEPHrine 0.1mg/mL 1:10,000 1 mg Route: IVP; Site: right femoral; ss 08:06 Follow up: Response: No change in condition ss 07:26 Drug: Sodium Bicarbonate 1 amp Route: IVP; Site: right femoral; ss 08:15 Follow up: Response: No change in condition ss 07:27 Drug: Calcium Chloride 1 grams Route: IVP; Site: right femoral; ss 08:15 Follow up: Response: No change in condition ss 07:29 Drug: EPINEPHrine 0.1mg/mL 1:10,000 1 mg Route: IVP; Site: right femoral; ss 08:15 Follow up: Response: No change in condition ss 07:31 Drug: EPINEPHrine 0.1mg/mL 1:10,000 1 mg Route: IVP; Site: right femoral; ss 08:14 Follow up: Response: No change in condition ss 07:33 Drug: EPINEPHrine 0.1mg/mL 1:10,000 1 mg Route: IVP; Site: right femoral; ss 08:14 Follow up: Response: No change in condition ss 07:34 Drug: Sodium Bicarbonate 1 amp Route: IVP; Site: right femoral; ss 08:06 Follow up: Response: No change in condition ss 07:34 Drug: Lidocaine 100 mg Route: IVP; Site: left antecubital; ss 08:06 Follow up: Response: No change in condition ss 07:36 Drug: Lidocaine 100 mg Route: IVP; Site: left antecubital; ss 08:07 Follow up: Response: No change in condition ss 07:38 Drug: Lidocaine 100 mg Route: IVP; Site: left antecubital; ss 08:13 Follow up: Response: No change in condition ss 08:27 Not Given (Hemodynamic Parameters): Propofol 5 mcg/kg/min IV at calculated rate ss continuous; titrate per protocol (titrate by 5-10mcg/kg/min every 10 min to max rate of 50 mcg/kg/min) Disposition: Patient pronounced on 09/20/20 07:40 by Win Garcia. Impression: Gastrointestinal hemorrhage, unspecified - massive/ exsanguination/ upper, Acute kidney failure, Alcohol abuse, Cardiac arrest, Respiratory arrest, Respiratory failure, unspecified. - Released to Home. Signatures: Dispatcher [employer] EDMS Win Garcia MD MD cha Munoz, Edgar RN RN em Malathi Amaya RN RN iw Smirch, Shelby, RN RN ss Bryson, James, RN RN jb4 Misha Carr MD MD mh7 David Umana RN RN jm8 Corrections: (The following items were deleted from the chart) 04:59 03:31 CORONAVIRUS ordered. EDMS EDMS 07:06 06:59 PACKED RBC LEUKORED -1+BB.LAB.BRZ ordered. EDMS EDMS 07:06 06:59 ABO/RH typing ordered. EDMS EDMS 07:06 06:59 Antibody Screen ordered. EDMS EDMS 10:53 07:50 09/20/2020 07:50 Patient pronounced on 09/20/2020 at 07:40 by Win Garcia. em Impression: Gastrointestinal hemorrhage, unspecified - massive/ exsanguination/ upper; Acute kidney failure; Alcohol abuse; Cardiac arrest; Respiratory arrest; Respiratory failure, unspecified. Released to Home. varsha
--- NOTE | 2020-09-20 07:51 | ER ---
Nurse's Notes [facility] Name: Pierre Jade Age: 60 yrs Sex: Male : 1960 Arrival Date: 09/20/2020 Time: 01:49 Bed 2 Private MD: Diagnosis: Gastrointestinal hemorrhage, unspecified-massive/ exsanguination/ upper;Acute kidney failure;Alcohol abuse;Cardiac arrest;Respiratory arrest;Respiratory failure, unspecified Presentation: 09/20 01:49 Chief complaint: EMS states: Pt reports having two bloody bowel movements that were jb4 just blood. He vomited blood as well. There was approximately 500ml of blood on the floor. His last blood pressure for us was 74/44, HR 140, BGL 130, he has a 20g in the left AC. He has received 300ml of ns so far. Coronavirus screen: Client denies travel out of the [place] in the last 14 days. Client presents with at least one sign or symptom that may indicate coronavirus-19. Ebola Screen: No symptoms or risks identified at this time. Initial Sepsis Screen: Does the patient meet any 2 criteria? RR > 20 per min. HR > 90 bpm. Does the patient have a suspected source of infection? Yes:. Risk Assessment: Do you want to hurt yourself or someone else? Patient reports no desire to harm self or others. Onset of symptoms was September 20, 2020. Transition of care: patient was not received from another setting of care. 01:49 Method Of Arrival: EMS: [facility] 4 01:49 Acuity: SARWAT 1 jb4 Historical: - Allergies: 01:52 NKDA; jb4 - Home Meds: 01:52 Hydroxyzine Oral [Active]; jb4 - PMHx: 01:52 Anxiety; Hypertension; jb4 - PSHx: 01:52 None; jb4 - Immunization history:: Adult Immunizations up to date. - Social history:: Smoking status: Patient reports the use of cigarette tobacco products, smokes one pack cigarettes per day. Patient uses alcohol, on a daily basis. Patient/guardian denies using street drugs. Screenin:32 Abuse screen: Denies threats or abuse. Denies injuries from another. Nutritional jm8 screening: No deficits noted. Tuberculosis screening: No symptoms or risk factors identified. Fall Risk None identified. Assessment: 02:28 General: Appears distressed, uncomfortable, Behavior is calm, cooperative, appropriate jm8 for age, Smells of alcohol. General:. Pain: Complains of pain in upper back Pain currently is 10 out of 10 on a pain scale. Pain began today. Neuro: No deficits noted. Level of Consciousness is awake, alert, obeys commands, Oriented to person, place, time. Cardiovascular: No deficits noted. Cardiovascular: Cardiovascular: Patient hypotensive upon arrival. Rhythm is regular. Respiratory: No deficits noted. Respiratory: Reports shortness of breath Airway is patent Trachea midline Respiratory effort is labored, Respiratory pattern is regular. GI: Abdomen is round distended, Pt is actively vomiting black coffee grounds Reports lower abdominal pain, upper abdominal pain, nausea, vomiting blood. : No deficits noted. EENT: No deficits noted. Derm: No deficits noted. Skin is intact, Skin is diaphoretic, Skin is pink, warm \\T\\ dry. Skin temperature is warm. Musculoskeletal: No deficits noted. 03:00 Reassessment: No changes from previously documented assessment. Patient and/or family jm8 updated on plan of care and expected duration. Pain level reassessed. Blood pressure continues to be persistently low.. 03:56 Reassessment: [facility] denies transfer due to capacity. iw 04:00 Reassessment: Patient and/or family updated on plan of care and expected duration. Pain jm8 level reassessed. Patient is alert, oriented x 3, equal unlabored respirations, skin warm/dry/pink. Patient states feeling better. Patient states symptoms have improved. 05:00 Reassessment: No changes from previously documented assessment. Patient and/or family jm8 updated on plan of care and expected duration. Pain level reassessed. Patient is alert, oriented x 3, equal unlabored respirations, skin warm/dry/pink. Patient states symptoms have improved. 06:00 Reassessment: No changes from previously documented assessment. Patient and/or family jm8 updated on plan of care and expected duration. Pain level reassessed. Patient is alert, oriented x 3, equal unlabored respirations, skin warm/dry/pink. 06:32 Reassessment: No changes from previously documented assessment. Patient vomits blood on jm8 the ground at this time. Patient is agitated and non redirectable. Preparing to intubate at this time. 07:25 Reassessment: Pt still remains hypotensive despite blood products and pressers. Change ss in Cardiac rhythm noted at this time, Vfib noted on monitor, No pulse. Manual CPR began. Pt defibrillated, CPR resumed. 07:27 Reassessment: Pulse check, PEA. " No Pulse, CPR resumed. ss 07:28 Reassessment: 3rd Unit PRBCs administered now. Unit # [id number]. ss 07:29 Reassessment: Pulse check: PEA, no pulse. CPR resumed. ss 07:31 Reassessment: Pulse check: No pulse. PEA. CPR resumed. ss 07:33 Reassessment: Pulse check. No pulse. VFIB. DEFIBRILLATED. CPR resumed. ss 07:35 Reassessment: Pulse check: VIB. No pulse. DEFIBRILLATED. CPR resumed. ss 07:37 Reassessment: Pulse check: Fine Vfib. No pulse, CPR resumed. ss 07:40 Reassessment: Pulse check. No pulse. Time of . ss 07:43 Reassessment: Dr. Garcia spoke with Mayra (step daughter) advised to come to ER. iw 10:45 Reassessment: [facility] staff at bedside. em Vital Signs: 01:49 BP 59 / 44; Pulse 129; Resp 26; Temp 98.2; Pulse Ox 100% on R/A; jb4 02:00 BP 63 / 46; Pulse 123; Resp 16; Pulse Ox 98% on R/A; jm8 02:30 BP 78 / 42; Pulse 133; Resp 24; Pulse Ox 100% on R/A; jm8 03:00 BP 78 / 38; Pulse 122; Resp 25; Pulse Ox 100% on R/A; jm8 03:10 BP 44 / 34; Pulse 125; Resp 24; Pulse Ox 100% ; jm8 03:20 BP 88 / 57; Pulse 127; Resp 16; Pulse Ox 97% on R/A; jm8 03:35 BP 102 / 57; Pulse 122; Resp 24; Pulse Ox 99% ; jm8 04:06 BP 101 / 58; Pulse 125; Resp 24; Pulse Ox 100% on R/A; jm8 04:30 BP 75 / 66; Pulse 120; Resp 16; Pulse Ox 100% on R/A; jm8 05:00 BP 94 / 59; Pulse 131; Resp 20; Pulse Ox 98% on R/A; [facility] 05:30 BP 97 / 46; Pulse 125; Resp 24; Pulse Ox 97% on R/A; 8 06:00 BP 106 / 59; Pulse 132; Resp 20; Pulse Ox 96% on R/A; 8 ED Course: 01:49 Patient arrived in ED. jb4 01:50 Misha Carr MD is Attending Physician. [facility] 01:50 Inserted saline lock: 18 gauge in right antecubital area, using aseptic technique. jm8 Maintain EMS IV. Dressing intact. Good blood return noted. Site clean \\T\\ dry. Gauge \\T\\ site: 20 g left AC. 01:52 Triage completed. jb4 01:52 Arm band placed on right wrist. jb4 02:27 Assisted provider with central line placement. Set up central line tray. Triple lumen jm8 line placed in right femoral. Line placed by Misha Carr MD Placement verified by blood return, Dressed with Tape, Tegaderm, Patient tolerated well. Time-out/Briefing performed prior to start of procedure? Yes. Was handwashing/sanitizing done immediately prior to procedure? Yes. Was patient positioned to in a way to prevent air embolism? Yes. Was procedure site sterilized? chlorhexidine. Was the site allowed to dry? Yes. Was local anesthetic and/or sedation utilized? Yes. During the procedure, did the Practitioner(s) maintain a sterile field? Yes. Was blood aspirated from each lumen? Yes. After the procedure, did the Practitioner(s) clean the site and apply a sterile dressing? Yes. 02:33 Patient has correct armband on for positive identification. Placed in gown. Bed in low jm8 position. Call light in reach. Side rails up X2. 03:22 Initiated transfer at [facility] with Sandra Encinas. Stated she would do a bed check tt3 and call back. 03:31 XRAY Chest (1 view) In Process Unspecified. EDMS 03:32 Initiated transfer at [facility] with Kamla Boswell. Stated she would do a bed tt3 check and call back. 03:40 Sandra Encinas called back and stated they had to deny the request due to capacity. tt3 03:42 [address] transfer [address] [facility] with Nuha. Stated she would do a bed check and call back. tt3 03:[address] [facility] called back and stated they had to deny due to capacity. tt3 03:51 Initiated transfer at [facility] with Nan. Was informed all campuses including the [place] and tt3 [place] were at capacity. 03:55 Kamla Boswell called back and informed Malathi Amaya RN, Charge Nurse that they had to tt3 decline due to capacity. 04:01 Initiated transfer at [facility] with Samara. Was informed that they were at capacity as tt3 well as [facility]. 04:06 Tried to initiate transfer at [facility] twice. No answer either time. tt3 04:06 Initiated transfer at [facility] with Nikkie Treadwell. Was informed that tt3 they were on ICU saturation. 04:19 Tried to initiate transfer at [facility] but no answer. tt3 04:25 Initiated transfer at [facility] with João Espinal tt3 Structural Engineer. Was informed they do not have GI services on. 04:32 Initiated transfer at [facility] with João MccollumChief Accounting Officer. Was informed tt3 they have no ICU beds available due to 2 admissions back to back recently. 04:40 Initiated transfer at [facility] with Aicha. Was placed on hold and was updated that they tt3 are at capacity at their [place] and [facility]. 04:52 Initiated transfer at [facility] with Akash. Call was transferred to OTF Ng, tt3 primary nurse for consultation. 05:56 Akash with [facility] called and informed Malathi Amaya RN, Charge Nurse tt3 that they had to decline due to capacity. 06:46 Assisted provider with intubation using 7.5 mm ETT via oral route. ET tube secured at iw 22cm at the lips. Set up intubation tray. Intubated by Misha Carr MD Placement verified by CO2 detector w/ + color change, auscultating bilateral breath sounds, Patient tolerated well. 06:50 Shelton cath inserted, using sterile technique, returned chari urine. Patient tolerated jm8 well. NGT: inserted 16 [address]. verified placement of air over stomach, verified return of gastric contents, 07:00 Report given to Report to Cheko Basilio. jm8 07:10 Chest Single View XRAY In Process Unspecified. EDMS 07:25 Attending Physician role handed off by Misha Carr MD varsha 07:25 Win Garcia MD is Attending Physician. varsha 07:44 Win Garcia MD is Pronouncing Provider. varsha 07:46 Police [place] [employer] called to page out the natural fabricator. 07:47 [facility] called to secure the patient until the [employer] Executive and Curran from [facility] can arrive. Administered Medications: 01:58 Drug: ProTONIX (pantoprazole) 80 mg Route: IVP; Site: right antecubital; jm8 02:49 Follow up: Response: No adverse reaction jm8 01:58 Drug: Octreotide 50 mcg Route: IV; Rate: bolus; Site: right antecubital; jm8 02:03 Drug: Zofran (Ondansetron) 4 mg Route: IVP; Site: right antecubital; jm8 02:49 Follow up: Response: No adverse reaction; Nausea is decreased jm8 02:08 Drug: NS 0.9% 1000 ml Route: IV; Rate: 1000 ml; Site: right antecubital; jb4 02:24 Drug: Octreotide Infusion (50 mcg/hr) - (Octreotide 500 mcg, NS 0.9% 500 ml) Route: IV; jm8 Rate: 50 ml/hr; Site: right femoral; 02:25 Drug: ProTONIX (pantoprazole) 8 mg/hr Route: IV; Rate: 25 ml/hr; Site: right femoral; jm8 02:47 Drug: Levophed (norepinephrine) (4 mg/250 mL D5W 4 mcg/min Route: IV; Rate: calculated jm8 rate; Site: right femoral; 02:48 Follow up: Rate change 5 mcg/min jm8 02:53 Follow up: Rate change 15 mcg/min jm8 03:00 Follow up: Rate change 25 mcg/min jm8 03:10 Follow up: Rate change 30 mcg/min jm8 03:51 Follow up: Rate change 10 mcg/min jm8 04:29 Follow up: Rate change 20 mcg/min jm8 06:40 Drug: Zofran (Ondansetron) 4 mg Route: IVP; Site: right antecubital; jm8 06:45 Drug: Etomidate 20 mg Route: IVP; Site: right femoral; iw 06:45 Drug: Succinylcholine 100 mg Route: IVP; Site: right femoral; iw 06:45 Drug: Ativan (LORazepam) 1 mg Route: IVP; Site: right antecubital; jm8 07:07 Drug: EPINEPHrine 0.1mg/mL 1:10,000 1 mg Route: IVP; Site: right femoral; ss 08:07 Follow up: Response: No change in condition ss 07:25 Drug: EPINEPHrine 0.1mg/mL 1:10,000 1 mg Route: IVP; Site: right femoral; ss 08:06 Follow up: Response: No change in condition ss 07:26 Drug: Sodium Bicarbonate 1 amp Route: IVP; Site: right femoral; ss 08:15 Follow up: Response: No change in condition ss 07:27 Drug: Calcium Chloride 1 grams Route: IVP; Site: right femoral; ss 08:15 Follow up: Response: No change in condition ss 07:29 Drug: EPINEPHrine 0.1mg/mL 1:10,000 1 mg Route: IVP; Site: right femoral; ss 08:15 Follow up: Response: No change in condition ss 07:31 Drug: EPINEPHrine 0.1mg/mL 1:10,000 1 mg Route: IVP; Site: right femoral; ss 08:14 Follow up: Response: No change in condition ss 07:33 Drug: EPINEPHrine 0.1mg/mL 1:10,000 1 mg Route: IVP; Site: right femoral; ss 08:14 Follow up: Response: No change in condition ss 07:34 Drug: Sodium Bicarbonate 1 amp Route: IVP; Site: right femoral; ss 08:06 Follow up: Response: No change in condition ss 07:34 Drug: Lidocaine 100 mg Route: IVP; Site: left antecubital; ss 08:06 Follow up: Response: No change in condition ss 07:36 Drug: Lidocaine 100 mg Route: IVP; Site: left antecubital; ss 08:07 Follow up: Response: No change in condition ss 07:38 Drug: Lidocaine 100 mg Route: IVP; Site: left antecubital; ss 08:13 Follow up: Response: No change in condition ss 08:27 Not Given (Hemodynamic Parameters): Propofol 5 mcg/kg/min IV at calculated rate ss continuous; titrate per protocol (titrate by 5-10mcg/kg/min every 10 min to max rate of 50 mcg/kg/min) Outcome: 07:40 Patient : Time of 07:40 Pronounced by Win Garcia MD Body to em home. 07:40 Condition: 10:53 Patient left the ED. em Signatures: Dispatcher [employer] Win Campos MD MD cha Munoz, Edgar, RN RN em Malathi Amaya RN RN Chayo Ruiz RN RN Joseph Street RN RN jb4 Yasmin Jensen Maurice, MD MD mh7 Ashok Whitney tt3 David Umana RN RN 8 Corrections: (The following items were deleted from the chart) 04:04 03:35 BP 102 / 57; Pulse 122bpm; [facility] 07:22 04:00 Reassessment: No changes from previously documented assessment. Patient and/or jm8 family updated on plan of care and expected duration. Pain level reassessed. Patient is alert, oriented x 3, equal unlabored respirations, skin warm/dry/pink. Patient states symptoms have improved. [facility] 08:29 07:27 Reassessment: Pulse check" No Pulse, CPR resumed. ss ss
--- NOTE | 2020-09-20 08:24 | RAD REPORT ---
EXAM DESCRIPTION: Mikey Single View09/20/2020 7:10 am CLINICAL HISTORY: Device placement endotracheal tube placement IMPRESSION: An endotracheal tube has been inserted with its tip at the level of the top of the aorti c arch.
[2020-09-20 11:14] VITALS: TEMP 98.2
[2020-09-20 11:34] VITALS: BP 106/59; O2SAT 96
--- NOTE | 2020-09-27 08:20 | RAD REPORT ---
EXAM DESCRIPTION: Mikey Single View09/20/2020 3:32 am CLINICAL HISTORY: Shortness of breath COMPARISON: 2015 FINDINGS: The lungs appear clear of acute infiltrate. The heart is normal size IMPRESSION: No acute abnormalities displayed
== END 2020-09-20 10:53 | disposition expired ==
LOC: ER 01:47
PROC: 06HM33Z Insertion of Infusion Device into Right Femoral Vein, Percutaneous Approach (ICD-10-PCS; principal; 2020-09-20)
PROC: 0BH17EZ Insertion of Endotracheal Airway into Trachea, Via Natural or Artificial Opening (ICD-10-PCS; 2020-09-20)
PROC: 5A1935Z Respiratory Ventilation, Less than 24 Consecutive Hours (ICD-10-PCS; 2020-09-20)
PROC: 30233N1 Transfusion of Nonautologous Red Blood Cells into Peripheral Vein, Percutaneous Approach (ICD-10-PCS; 2020-09-20)
DX: I46.9 Cardiac arrest, cause unspecified (principal); N17.9 Acute kidney failure, unspecified; F10.10 Alcohol abuse, uncomplicated; I10 Essential (primary) hypertension; F17.210 Nicotine dependence, cigarettes, uncomplicated; Z20.822 Contact with and (suspected) exposure to COVID-19
CPT/HCPCS: 31500; 36415; 51702; 71045; 80048; 80076; 80320; 81003; 83690; 83735; 83880; 84484; 85014; 85018; 85025; 85610; 86850; 86900; 86901; 87040; 87077; 87186; 87205; 93005; 99291; 99292; C9113; J0171; J0330; J2354; J2405; J2704; J7030; J7040; J7050; J7060; P9016; U0003